=== PATIENT | female | born 1955 | race Two or more races ===

== ENCOUNTER 2021-07-04 19:24 | Emergency (ER) | payer OTHER ==
[~2021-07-04] VITALS: Ht 157.5 cm; Wt 75.0 kg
[2021-07-04 19:28] VITALS: BP 162/73
[2021-07-04] MEDS ORDERED: ACETAMINOPHEN 325 MG TABLET PO ONE (20:15)
== END 2021-07-04 20:59 | disposition home or self-care (01) ==
LOC: EMS 19:29
DX: S00.93XA Contusion of unspecified part of head, initial encounter (principal); W20.8XXA Other cause of strike by thrown, projected or falling object, initial encounter; Y93.89 Activity, other specified; Y92.89 Other specified places as the place of occurrence of the external cause; Y99.0 Civilian activity done for income or pay
CPT/HCPCS: 99282; Z7502; Z7610